=== PATIENT | male | born 1945 | race Caucasian/White ===

== ENCOUNTER 2017-08-08 11:06 | Inpatient (IN) | payer MEDICARE, BC ==
[2017-08-08] MEDS ORDERED: Albuterol 0.083% 2.5 MG/3 ML Neb Soln NEB PRN (11:58)
[2017-08-08] MEDS ORDERED: Sodium Chloride 0.9% 1,000 ML IV SCH (11:58)
[2017-08-08] MEDS ORDERED: oxyCODONE 5 MG Tab PO PRN (11:58)
[2017-08-08] MEDS ORDERED: Sodium Chloride 0.9% 10 ML Syringe FLUSH PRN (11:58)
[2017-08-08] MEDS ORDERED: Acetaminophen 325 MG Tab PO PRN (11:58)
[2017-08-08] MEDS ORDERED: Polyethylene Glycol 3350 Powder 17 GM Packet PO PRN (11:58)
[2017-08-08] MEDS ORDERED: Magnesium Hydroxide 400 MG/5 ML Susp 30 ML Cup PO PRN (11:58)
[2017-08-08] MEDS ORDERED: Ondansetron 4 MG/2 ML SDV IV PRN (11:58)
[2017-08-08] MEDS ORDERED: methylPREDNISolone Sodium Succinate 125 MG/2 ML SDV IVPUSH ONE (12:30)
[2017-08-08] MEDS: Enoxaparin 40 MG/0.4 ML Syringe SUBCUT SCH (14:08)
[2017-08-08] MEDS ORDERED: Non-Formulary Medication 1 Each (Esomeprazole [Nexium] 40 MG) PO PRN (14:09)
[2017-08-08] MEDS ORDERED: NAPROXEN 500 MG PO PRN (14:09)
[2017-08-08] MEDS ORDERED: 50% Dextrose in Water 50 ML Syringe IV PRN (14:10)
[2017-08-08] MEDS ORDERED: Glucose Gel 15 GM in 37.5 GM Tube PO PRN (14:10)
[2017-08-08] MEDS ORDERED: Nicotine Polacrilex 2 MG Gum CHEW PRN (14:12)
[2017-08-08] MEDS ORDERED: Naproxen 250 MG Tab PO PRN (14:24)
[2017-08-08] MEDS ORDERED: Pantoprazole 40 MG Tab.CR PO PRN (14:30)
[2017-08-08] MEDS: Albuterol/Ipratropium 3.0-0.5 MG/3 ML Neb Soln NEB SCH ×2 (14:50→20:58)
[2017-08-08] MEDS: Nicotine 21 MG/24 Hr Patch TRDERM SCH (14:58)
[2017-08-08] MEDS ORDERED: Magnesium Sulfate/Water 2 GM in Premix Bag 1 BAG IV ONE (15:00)
--- NOTE | 2017-08-08 15:49 | PCM.HP ---
H&P History of Present Illness - General Date of Service: 08/08/17 Admit Problem/Dx: Source of Information: Patient, Provider, RN Notes Reviewed History Limitations: Reports: No Limitations - History of Present Illness Initial Comments - Free Text/Narative: Mr. Telles is a 72-year-old gentleman who is admitted as a direct admission from the clinic urgent care department with hypoxia and upper respiratory tract infection. He's not felt well over the past 5 days with cough and progressive shortness of breath. He does have a known history of COPD, continues to smoke, but is not yet oxygen dependent. Symptoms have progressed the point where he was significantly short of breath at rest. On evaluation in the urgent care clinic was noted to be hypoxic, chest x-ray showed no obvious infiltrate. - Related Data Allergies/Adverse Reactions: Allergies Allergy/AdvReac Type Severity Reaction Status Date / Time No Known Allergies Allergy Verified 11/26/16 09:09 Home Medications: Home Meds Albuterol Sulfate [Albuterol Sulfate HFA] 2 puff IH Q4H PRN 09/16/13 [History] Montelukast [Singulair] 10 mg PO DAILY 09/16/13 [History] Aspirin 325 mg PO DAILY 10/07/15 [History] Umeclidinium Galva [Incruse Ellipta] 1 puff IH DAILY 10/07/15 [History] amLODIPine Besylate [Norvasc] 2.5 mg PO DAILY 10/07/15 [History] atorvaSTATin [Lipitor] 40 mg PO DAILY 10/07/15 [History] metFORMIN [Riomet] 500 mg PO BID 10/07/15 [History] Codeine/guaiFENesin [guaiFENesin-Codeine Syrup] 10 ml PO Q4H PRN 05/13/16 [ History] Fluticasone/Vilanterol [Breo Ellipta 100-25 MCG Inhalation Kit] 1 puff IH DAILY 05/13/16 [History] Multivit-Min/FA/Lycopene/Lut [Centrum Silver Tablet] 1 tab PO DAILY 05/13/16 [ History] Naproxen 500 mg PO TIDMEALS PRN 05/13/16 [History] Lisinopril 10 mg PO DAILY 11/26/16 [History] Esomeprazole [NexIUM] 40 mg PO DAILY PRN 08/08/17 [History] traMADol HCl [Tramadol HCl] 50 - 100 mg PO QID PRN 08/08/17 [History] Past Medical History HEENT History: Reports: Other (See Below) Other HEENT History: septal surg and sinus Cardiovascular History: Reports: Other (See Below) Respiratory History: Reports: COPD Gastrointestinal History: Reports: GERD Endocrine/Metabolic History: Reports: Diabetes, Type II - Past Surgical History Head Surgeries/Procedures: Reports: None Cardiovascular Surgical History: Reports: Percutaneous Transluminal Angioplasty Neurological Surgical History: Reports: Other (See Below) Other Neurological Surgeries/Procedures: angiogram in neck Social & Family History - Tobacco Use Smoking Status *Q: Light Tobacco Smoker Years of Tobacco use: 50 Packs/Tins Daily: 0.5 Used Tobacco, but Quit: No Month Tobacco Last Used: Second Hand Smoke Exposure: Yes - Caffeine Use Caffeine Use: Reports: Coffee - Alcohol Use Days Per Week of Alcohol Use: 1 Number of Drinks Per Day: 1 Total Drinks Per Week: 1 - Recreational Drug Use Recreational Drug Use: No H&P Review of Systems - Review of Systems: Review Of Systems: See Below General: Reports: Chills, Weakness, Diaphoresis, Decreased Appetite. Denies: Fever HEENT: Reports: No Symptoms Pulmonary: Reports: Shortness of Breath, Wheezing, Cough, Sputum. Denies: Pleuritic Chest Pain, Hemoptysis Cardiovascular: Reports: Dyspnea on Exertion. Denies: Chest Pain, Palpitations , Orthopnea, PND, Edema, Lightheadedness Gastrointestinal: Reports: No Symptoms Genitourinary: Reports: No Symptoms Musculoskeletal: Reports: No Symptoms Skin: Reports: No Symptoms Psychiatric: Reports: No Symptoms Neurological: Reports: No Symptoms Hematologic/Lymphatic: Reports: No Symptoms Immunologic: Reports: No Symptoms Exam - Exam Exam: See Below - Vital Signs Vital Signs: Last Vital Signs Temp 99.0 F 08/08/17 11:58 Pulse 96 08/08/17 15:20 Resp 22 H 08/08/17 15:20 BP 148/80 H 08/08/17 15:20 Pulse Ox 94 L 08/08/17 15:20 Weight: 255 lb 6.4 oz - Exam Quality Assessment: Supplemental Oxygen, DVT Prophylaxis General: Alert, Oriented, Cooperative, Moderate Distress HEENT: Conjunctiva Clear, Hearing Intact, Mucosa Moist & [place], Normal Nasal Septum, Posterior Pharynx Clear, Pupils Equal Neck: Supple, Trachea Midline, +2 Carotid Pulse wo Bruit Lungs: Decreased Breath Sounds, Rhonchi, Wheezing. No: Crackles, Rales, Rub Cardiovascular: Regular Rate, Regular Rhythm, Normal S1, Normal S2. No: Systolic Murmur, Diastolic Murmur GI/Abdominal Exam: Soft, Non-Tender, No Organomegaly, No Distention Back Exam: Normal Inspection, Full Range of Motion Extremities: Non-Tender, No Pedal Edema Skin: Warm, Dry, Intact Neurological: Cranial Nerves Intact, Strength Equal Bilateral, Normal Speech, Normal Tone, Sensation Intact. No: Focal Deficit Neuro Extensive - Mental Status: Alert, Oriented x3, Normal Mood/Affect, Normal Cognition, Memory Intact - Patient Data Lab Results Last 24 hrs: Laboratory Results - last 24 hr 08/08/17 08/08/17 08/08/17 Range/Units 12:10 12:10 12:10 WBC 5.7 (4.5-11.0) K/uL RBC 4.82 (4.30-5.90) M/uL Hgb 14.4 (12.0-15.0) g/dL Hct 42.6 (40.0-54.0) % MCV 88 (80-98) fL MCH 30 (27-31) pg MCHC 34 (32-36) % Plt Count 149 L (150-400) K/uL Neut % (Auto) 65 (36-66) % Lymph % (Auto) 21 L (24-44) % [place] % (Auto) 13 H (2-6) % Eos % (Auto) 1 L (2-4) % Baso % (Auto) 0 (0-1) % Puncture Site Lt radial ABG pH 7.401 (7.350-7.450) ABG pCO2 43.1 H (35.0-42.0) mmHg ABG pO2 76.2 (75.0-100.0) mmHg ABG HCO3 26.2 H (22.0-26.0) mmol/L ABG Total CO2 22.9 L (23.0-27.0) mmol/L ABG O2 Saturation 94.4 L (95.0-98.0) % ABG O2 Content 18.6 (15.0-23.0) %vol ABG Base Excess 1.6 mm/L ABG Hemoglobin 14.5 (13.5-18.0) g/dL ABG Oxyhemoglobin 91.6 % ABG Carboxyhemoglobin 2.0 H (0.0-1.6) % ABG Methemoglobin 1.0 % Ryley Test Passed O2 Delivery Device Nasal cannula Oxygen Flow Rate 3 L Sodium 140 (140-148) mmol/L Potassium 4.3 (3.6-5.2) mmol/L Chloride 105 (100-108) mmol/L Carbon Dioxide 25 (21-32) mmol/L Anion Gap 9.7 (5.0-14.0) mmol/L BUN 13 (7-18) mg/dL Creatinine 1.2 (0.8-1.3) mg/dL Est Cr Clr Drug Dosing 61.01 mL/min Estimated GFR (MDRD) 60 (>60) Glucose 119 H (74-106) mg/dL Calcium 8.2 L (8.5-10.1) mg/dL Magnesium 1.7 L (1.8-2.4) mg/dL Total Bilirubin 0.5 (0.2-1.0) mg/dL AST 17 (15-37) U/L ALT 9 L (12-78) U/L Alkaline Phosphatase 66 (46-116) U/L Troponin I < 0.017 (0.000-0.056) ng/mL NT-Pro-B Natriuret Pep 105 (5-125) pg/mL Total Protein 5.9 L (6.4-8.2) g/dL Albumin 3.1 L (3.4-5.0) g/dL Globulin 2.8 (2.3-3.5) g/dL Albumin/Globulin Ratio 1.1 L (1.2-2.2) Result Diagrams: 08/08/17 12:10 08/08/17 12:10 Sean Results Last 24 hrs: Microbiology 08/08/17 12:20 Gram Stain - Final Sputum - Expectorated *Q Meaningful Use (ADM) - VTE *Q VTE Criteria *Q: - VTE Risk Assess *Q Each Risk Factor Represents 1 Point: Abnormal Pulmonary Function (COPD) Total Score 1 Point Risk Factors: 1 Each Risk Factor Represents 2 Points: Age 60 - 74 Years Total Score 2 Point Risk Factors: 2 Each Risk Factor Represents 3 Points: None Total Score 3 Point Risk Factors: 0 Each Risk Factor Represents 5 Points: None Total Score 5 Point Risk Factors: 0 Venous Thromboembolism Risk Factor Score *Q: 3 - Stroke *Q Stroke Criteria *Q: - AMI *Q AMI Criteria *Q: Problem List Initiated/Reviewed/Updated: Yes Orders Last 24hrs: Active Orders 24 hr Category Date Time Status Patient Status [ADT] Routine ADT 08/08/17 11:58 Active Ambulate [RC] QID Care 08/08/17 11:58 Active Blood Glucose Check, Bedside [RC] QIDACANDBED Care 08/08/17 14:11 Active Cardiac Monitoring [RC] .As Directed Care 08/08/17 11:58 Active Communication Order [RC] STAT Care 08/08/17 14:11 Active Diabetes Education [RC] Click to Edit Care 08/08/17 14:11 Active Height and Weight [RC] 0511 Care 08/08/17 11:58 Active Intake and Output [RC] QSHIFT Care 08/08/17 11:58 Active Notify Provider Vital Signs [RC] ASDIRECTED Care 08/08/17 11:58 Active Notify Provider [RC] PRN Care 08/08/17 14:11 Active Oxygen Therapy [RC] PRN Care 08/08/17 11:58 Active Peripheral IV Care [RC] . DIRECTED Care 08/08/17 11:58 Active Pulse Oximetry [RC] CONTINUOUS Care 08/08/17 11:58 Active RT Aerosol Therapy [RC] ASDIRECTED Care 08/08/17 11:58 Active Up With Assistance [RC] ASDIRECTED Care 08/08/17 11:58 Active Up to Chair [RC] QID Care 08/08/17 11:58 Active VTE/DVT Education [RC] Per Unit Routine Care 08/08/17 11:58 Active Vital Signs [RC] Q4H Care 08/08/17 11:58 Active Regular Diet [DIET] Diet 08/08/17 Lunch Active BASIC METABOLIC PANEL,BMP [CHEM] Timed Lab 08/09/17 05:00 Ordered CBC WITH AUTO DIFF [HEME] Timed Lab 08/09/17 05:00 Ordered CULTURE RESPIRATORY + SMEAR [RM] Stat Lab 08/08/17 12:20 Results GLUCOSE POC LAB TO COLLECT [POC] QIDACANDBED Lab 08/08/17 16:30 Ordered GLUCOSE POC LAB TO COLLECT [POC] QIDACANDBED Lab 08/08/17 21:00 Ordered GLUCOSE POC LAB TO COLLECT [POC] QIDACANDBED Lab 08/09/17 07:30 Ordered GLUCOSE POC LAB TO COLLECT [POC] QIDACANDBED Lab 08/09/17 11:30 Ordered GLUCOSE POC LAB TO COLLECT [POC] QIDACANDBED Lab 08/09/17 16:30 Ordered GLUCOSE POC LAB TO COLLECT [POC] QIDACANDBED Lab 08/09/17 21:00 Ordered GLUCOSE POC LAB TO COLLECT [POC] QIDACANDBED Lab 08/10/17 07:30 Ordered GLUCOSE POC LAB TO COLLECT [POC] QIDACANDBED Lab 08/10/17 11:30 Ordered GLUCOSE POC LAB TO COLLECT [POC] QIDACANDBED Lab 08/10/17 16:30 Ordered GLUCOSE POC LAB TO COLLECT [POC] QIDACANDBED Lab 08/10/17 21:00 Ordered GLUCOSE POC LAB TO COLLECT [POC] QIDACANDBED Lab 08/11/17 07:30 Ordered GLUCOSE POC LAB TO COLLECT [POC] QIDACANDBED Lab 08/11/17 11:30 Ordered GLUCOSE POC LAB TO COLLECT [POC] QIDACANDBED Lab 08/11/17 16:30 Ordered GLUCOSE POC LAB TO COLLECT [POC] QIDACANDBED Lab 08/11/17 21:00 Ordered GLUCOSE POC LAB TO COLLECT [POC] QIDACANDBED Lab 08/12/17 07:30 Ordered GLUCOSE POC LAB TO COLLECT [POC] QIDACANDBED Lab 08/12/17 11:30 Ordered GLUCOSE POC LAB TO COLLECT [POC] QIDACANDBED Lab 08/12/17 16:30 Ordered GLUCOSE POC LAB TO COLLECT [POC] QIDACANDBED Lab 08/12/17 21:00 Ordered GLUCOSE POC LAB TO COLLECT [POC] QIDACANDBED Lab 08/13/17 07:30 Ordered GLUCOSE POC LAB TO COLLECT [POC] QIDACANDBED Lab 08/13/17 11:30 Ordered GLUCOSE POC LAB TO COLLECT [POC] QIDACANDBED Lab 08/13/17 16:30 Ordered GLUCOSE POC LAB TO COLLECT [POC] QIDACANDBED Lab 08/13/17 21:00 Ordered MAGNESIUM [CHEM] Timed Lab 08/09/17 05:00 Ordered Acetaminophen [Tylenol] Med 08/08/17 11:58 Active 650 mg PO Q4H PRN Albuterol [Proventil Neb Soln] Med 08/08/17 11:58 Active 2.5 mg NEB Q4H PRN Albuterol/Ipratropium [DuoNeb 3.0-0.5 MG/3 ML] Med 08/08/17 15:00 Active 3 ml NEB QIDRT Aspirin [Ecotrin] Med 08/09/17 09:00 Active 325 mg PO DAILY Codeine/guaiFENesin [Robitussin AC] Med 08/08/17 14:09 Active 10 ml PO Q4H PRN Dextrose 50% in Water Med 08/08/17 14:10 Active 50 ml IV ASDIRECTED PRN Dextrose [Glutose 15] Med 08/08/17 14:10 Active 15 gm PO ASDIRECTED PRN Docusate Sodium/Sennosides [Senna Plus] Med 08/08/17 11:58 Active 1 tab PO BID PRN Doxycycline [Vibramycin] 100 mg Med 08/08/17 16:00 Active Sodium Chloride 0.9% [Normal Saline] 100 ml IV Q12H Enoxaparin [Lovenox] Med 08/08/17 13:30 Active 40 mg SUBCUT Q24H Fluticasone/Vilanterol Med 08/09/17 09:00 Pending 1 puff IH DAILY Insulin Aspart [NovoLOG] Med 08/08/17 17:00 Active See Protocol SUBCUT QIDACANDBED Lisinopril [Prinivil] Med 08/09/17 09:00 Active 10 mg PO DAILY Magnesium Hydroxide [Milk of Magnesia] Med 08/08/17 11:58 Active 30 ml PO Q12H PRN Magnesium Sulfate/Water [Magnesium Sulfate 2 GM in Med 08/08/17 15:00 Active Water 50 ML] 2 gm Premix Bag 1 bag IV ONETIME Montelukast [Singulair] Med 08/09/17 09:00 Active 10 mg PO DAILY Naproxen [Naprosyn] Med 08/08/17 14:24 Active 500 mg PO TIDMEALS PRN Nicotine Polacrilex [Nicorelief] Med 08/08/17 14:12 Active 2 mg CHEW Q1H PRN Nicotine [Habitrol] Med 08/08/17 15:00 Active 21 mg TRDERM DAILY Ondansetron [Zofran] Med 08/08/17 11:58 Active 4 mg IV Q4H PRN Pantoprazole [ProTONIX] Med 08/08/17 14:30 Active 40 mg PO DAILY PRN Polyethylene Glycol 3350 [MiraLAX] Med 08/08/17 11:58 Active 17 gm PO DAILY PRN Sodium Chloride 0.9% [Normal Saline] 1,000 ml Med 08/08/17 11:58 Active IV ASDIRECTED Sodium Chloride 0.9% [Saline Flush] Med 08/08/17 11:58 Active 10 ml FLUSH ASDIRECTED PRN Tiotropium [Spiriva HandiHaler] Med 08/09/17 07:00 Active 18 mcg INH DAILYRT amLODIPine [Norvasc] Med 08/09/17 09:00 Active 2.5 mg PO DAILY atorvaSTATin [Lipitor] Med 08/09/17 09:00 Active 40 mg PO DAILY metFORMIN [Glucophage] Med 08/08/17 17:00 Active 500 mg PO BIDMEALS methylPREDNISolone Sod Succ [Solu-MEDROL] Med 08/08/17 18:00 Active 40 mg IVPUSH Q6H oxyCODONE Med 08/08/17 11:58 Active 5 mg PO Q4H PRN traMADol [Ultram] Med 08/08/17 14:09 Active 50 - 100 mg PO QID PRN Peripheral IV Insertion Adult [OM.PC] Routine Oth 08/08/17 11:58 Ordered Resuscitation Status Routine Resus Stat 08/08/17 11:26 Ordered EKG 12 Lead [EK] Stat Ther 08/08/17 11:58 Ordered Medication Orders Acetaminophen (Tylenol) 650 mg PO Q4H PRN PRN Reason: Pain (Mild 1-3)/fever Albuterol (Proventil Neb Soln) 2.5 mg NEB Q4H PRN PRN Reason: Shortness Of Breath/wheezing Last Admin: 08/08/17 12:48 Dose: 2.5 mg Albuterol/Ipratropium (Duoneb 3.0-0.5 Mg/3 Ml) 3 ml NEB QIDRT ANN Last Admin: 08/08/17 14:50 Dose: 3 ml Amlodipine Besylate (Norvasc) 2.5 mg PO DAILY ANN Aspirin (Ecotrin) 325 mg PO DAILY ANN Atorvastatin Calcium (Lipitor) 40 mg PO DAILY ANN Dextrose (Glutose 15) 15 gm PO ASDIRECTED PRN PRN Reason: Hypoglycemia Dextrose/Water (Dextrose 50% In Water) 50 ml IV ASDIRECTED PRN PRN Reason: Hypoglycemia Enoxaparin Sodium (Lovenox) 40 mg SUBCUT Q24H [facility] Last Admin: 08/08/17 14:08 Dose: 40 mg Guaifenesin/Codeine Phosphate (Robitussin Ac) 10 ml PO Q4H PRN PRN Reason: Cough Sodium Chloride (Normal Saline) 1,000 mls @ 125 mls/hr IV ASDIRECTED [facility] Last Admin: 08/08/17 12:34 Dose: 125 mls/hr Magnesium Sulfate 2 gm/ Premix 50 mls @ 25 mls/hr IV ONETIME ONE Stop: 08/08/17 16:59 Last Admin: 08/08/17 14:58 Dose: 25 mls/hr Doxycycline Hyclate 100 mg/ (Sodium Chloride) 100 mls @ 100 mls/hr IV Q12H [facility] Insulin Aspart (Novolog) 0 unit SUBCUT QIDACANDBED [facility] PRN Reason: Protocol Lisinopril (Prinivil) 10 mg PO DAILY [facility] Magnesium Hydroxide (Milk Of Magnesia) 30 ml PO Q12H PRN PRN Reason: Constipation Metformin HCl (Glucophage) 500 mg PO BIDMEALS [facility] Methylprednisolone Sodium Succinate (Solu-Medrol) 40 mg IVPUSH Q6H [facility] Montelukast Sodium (Singulair) 10 mg PO DAILY [facility] Naproxen (Naprosyn) 500 mg PO TIDMEALS PRN PRN Reason: PAIN Nicotine (Habitrol) 21 mg TRDERM DAILY [facility] Last Admin: 08/08/17 14:58 Dose: 21 mg Nicotine Polacrilex (Nicorelief) 2 mg CHEW Q1H PRN PRN Reason: Other Non-Formulary Medication (Fluticasone/Vilanterol) 1 puff IH DAILY [facility] Ondansetron HCl (Zofran) 4 mg IV Q4H PRN PRN Reason: Nausea/Vomiting Oxycodone HCl (Oxycodone) 5 mg PO Q4H PRN PRN Reason: Pain (moderate 4-6) Pantoprazole Sodium (Protonix) 40 mg PO DAILY PRN PRN Reason: REFLUX Polyethylene Glycol (Miralax) 17 gm PO DAILY PRN PRN Reason: Constipation Senna/Docusate Sodium (Senna Plus) 1 tab PO BID PRN PRN Reason: Constipation Sodium Chloride (Saline Flush) 10 ml FLUSH ASDIRECTED PRN PRN Reason: Keep Vein Open Tiotropium Galva (Spiriva Handihaler) 18 mcg INH DAILYRT ANN Tramadol HCl (Ultram) 50 - 100 mg PO QID PRN PRN Reason: Pain Assessment/Plan Comment:: ASSESSMENT AND PLAN COPD EXACERBATION SECONDARY TO BRONCHITIS-modestly improved with initial management and supplemental oxygen. Chest x-ray shows no obvious infiltrate, white blood cell count within normal range. Sputum culture Gram stain shows numerous gram-positive cocci. -Sputum culture pending -Supplemental oxygen as needed -IV fluids for hydration -Nebulized albuterol and duo nebs -Solu-Medrol 40 mg IV every 6 hours -Doxycycline 100 mg IV every 12 hours, pending culture results HYPOXIC RESPIRATORY FAILURE-stabilized with supplemental oxygen -Ongoing supplemental oxygen as needed -Consider use of noninvasive positive pressure ventilation if he experiences further respiratory compromise -Otherwise management as above TYPE 2 DIABETES MELLITUS -Continue metformin -4 times a day glucometers -Low-dose sliding scale NovoLog NICOTINE [id number]-cqro-year smoking history, smoked up until the time of admission -21 mg daily patch -2 mg nicotinic as needed MAINTENANCE ISSUES -DVT prophylaxis; Lovenox 40 mg subcutaneous daily -GI prophylaxis; continue outpatient PPI therapy -Castillo catheter; not indicated -Nutrition; regular diet -Nicotine dependence; as above CODE STATUS-FULL CODE ADMISSION STATUS-patient will be admitted to inpatient status, expect at least a 2 night hospital stay for evaluation and management of problems as outlined above. At the time of this admission I do not reasonably expected evaluation and management of this problem will require more than a 96 hour hospital stay. DISPOSITION-anticipate discharge to home after the hospital stay. PRIMARY CARE PROVIDER-Dr. Warren
[2017-08-08] MEDS: Codeine/guaiFENesin 100mg-10 MG/5 ML Syrup 10 ML Cup PO PRN ×2 (16:43→21:00)
[2017-08-08] MEDS: Doxycycline 100 MG in Sodium Chloride 0.9% 100 ML IV SCH (16:53)
[2017-08-08] MEDS: Insulin Aspart 100 Units/ML 3 ML Pen SUBCUT SCH ×2 (17:04→20:58)
[2017-08-08] MEDS: metFORMIN 500 MG Tab PO SCH (17:17)
[2017-08-08] MEDS: methylPREDNISolone Sodium Succinate 40 MG/1 ML SDV IVPUSH SCH ×2 (18:09→23:58)
[2017-08-08] MEDS ORDERED: metFORMIN 500 MG/5 ML PO SCH (21:00)
[2017-08-08] MEDS: traMADol 50 MG Tab PO PRN (23:59)
[2017-08-09] MEDS: Codeine/guaiFENesin 100mg-10 MG/5 ML Syrup 10 ML Cup PO PRN ×4 (01:32→21:26)
[2017-08-09] MEDS: Doxycycline 100 MG in Sodium Chloride 0.9% 100 ML IV SCH ×2 (02:59→16:02)
[2017-08-09] MEDS: methylPREDNISolone Sodium Succinate 40 MG/1 ML SDV IVPUSH SCH ×4 (05:32→23:07)
[2017-08-09] MEDS: Albuterol/Ipratropium 3.0-0.5 MG/3 ML Neb Soln NEB SCH ×4 (07:25→21:26)
[2017-08-09] MEDS: Tiotropium Inhaler 18 MCG Inhalation Powder Cap Kit of 5 INH SCH (07:30)
[2017-08-09] MEDS: Insulin Aspart 100 Units/ML 3 ML Pen SUBCUT SCH ×4 (07:32→21:31)
[2017-08-09] MEDS: amLODIPine 5 MG Tab PO SCH (08:16)
[2017-08-09] MEDS: metFORMIN 500 MG Tab PO SCH ×2 (08:16→17:00)
[2017-08-09] MEDS: Lisinopril 10 MG Tab PO SCH (08:17)
[2017-08-09] MEDS: Aspirin 325 MG Tab.EC PO SCH (08:17)
[2017-08-09] MEDS: Montelukast 10 MG Tab PO SCH (08:18)
[2017-08-09] MEDS: atorvaSTATin 20 MG Tab PO SCH (08:18)
[2017-08-09] MEDS: Nicotine 21 MG/24 Hr Patch TRDERM SCH (08:19)
[2017-08-09] MEDS: BREO ELLIPTA INH SCH (08:29)
[2017-08-09] MEDS ORDERED: Non-Formulary Medication 1 Each (Fluticasone/Vilanterol 1 PUFF) IH SCH (09:00)
[2017-08-09] MEDS ORDERED: Non-Formulary Medication 1 Each (Umeclidinium Bromide [Incruse Ellipta] 1 PUFF) IH SCH (09:00)
[2017-08-09] MEDS ORDERED: AMLODIPINE BESYLATE 2.5 MG PO SCH (09:00)
[2017-08-09] MEDS ORDERED: Non-Formulary Medication 1 Each (Aspirin [Aspirin] 325 MG) PO SCH (09:00)
[2017-08-09] MEDS ORDERED: Non-Formulary Medication 1 Each (Atorvastatin [Lipitor] 40 MG) PO SCH (09:00)
--- NOTE | 2017-08-09 09:54 | PCM.PN ---
- General Info Date of Service: 08/09/17 Subjective Update: Mr. Telles has improved since admission, blood shortness of breath and wheezing. Cough also seems to have improved somewhat and is more productive. He is currently on room air with adequate oxygen saturation. Vital signs have been stable and he has remained afebrile. Functional Status: Reports: Tolerating Diet, Urinating - Review of Systems General: Reports: Weakness. Denies: Fever, Chills Pulmonary: Reports: Shortness of Breath, Cough, Sputum, Wheezing. Denies: Pleuritic Chest Pain, Hemoptysis Cardiovascular: Reports: Dyspnea on Exertion. Denies: Chest Pain, Palpitations , Orthopnea, PND, Edema, Lightheadedness Gastrointestinal: Reports: No Symptoms - Patient Data Vitals - Most Recent: Last Vital Signs Temp 98.5 F 08/09/17 07:45 Pulse 108 H 08/09/17 07:45 Resp 20 08/09/17 07:45 BP 148/61 H 08/09/17 08:17 Pulse Ox 92 L 08/09/17 07:45 Weight - Most Recent: 255 lb 6.4 oz I&O - Last 24 Hours: Intake & Output 08/08/17 08/09/17 08/09/17 22:59 06:59 14:59 Intake Total 2281 1999 Output Total 1150 Balance 1131 1999 Lab Results Last 24 Hours: Laboratory Results - last 24 hr 08/08/17 08/08/17 08/08/17 Range/Units 12:10 12:10 12:10 WBC 5.7 (4.5-11.0) K/uL RBC 4.82 (4.30-5.90) M/uL Hgb 14.4 (12.0-15.0) g/dL Hct 42.6 (40.0-54.0) % MCV 88 (80-98) fL MCH 30 (27-31) pg MCHC 34 (32-36) % Plt Count 149 L (150-400) K/uL Neut % (Auto) 65 (36-66) % Lymph % (Auto) 21 L (24-44) % [place] % (Auto) 13 H (2-6) % Eos % (Auto) 1 L (2-4) % Baso % (Auto) 0 (0-1) % Puncture Site Lt radial ABG pH 7.401 (7.350-7.450) ABG pCO2 43.1 H (35.0-42.0) mmHg ABG pO2 76.2 (75.0-100.0) mmHg ABG HCO3 26.2 H (22.0-26.0) mmol/L ABG Total CO2 22.9 L (23.0-27.0) mmol/L ABG O2 Saturation 94.4 L (95.0-98.0) % ABG O2 Content 18.6 (15.0-23.0) %vol ABG Base Excess 1.6 mm/L ABG Hemoglobin 14.5 (13.5-18.0) g/dL ABG Oxyhemoglobin 91.6 % ABG Carboxyhemoglobin 2.0 H (0.0-1.6) % ABG Methemoglobin 1.0 % Ryley Test Passed O2 Delivery Device Nasal cannula Oxygen Flow Rate 3 L Sodium 140 (140-148) mmol/L Potassium 4.3 (3.6-5.2) mmol/L Chloride 105 (100-108) mmol/L Carbon Dioxide 25 (21-32) mmol/L Anion Gap 9.7 (5.0-14.0) mmol/L BUN 13 (7-18) mg/dL Creatinine 1.2 (0.8-1.3) mg/dL Est Cr Clr Drug Dosing 61.01 mL/min Estimated GFR (MDRD) 60 (>60) Glucose 119 H (74-106) mg/dL Calcium 8.2 L (8.5-10.1) mg/dL Magnesium 1.7 L (1.8-2.4) mg/dL Total Bilirubin 0.5 (0.2-1.0) mg/dL AST 17 (15-37) U/L ALT 9 L (12-78) U/L Alkaline Phosphatase 66 (46-116) U/L Troponin I < 0.017 (0.000-0.056) ng/mL NT-Pro-B Natriuret Pep 105 (5-125) pg/mL Total Protein 5.9 L (6.4-8.2) g/dL Albumin 3.1 L (3.4-5.0) g/dL Globulin 2.8 (2.3-3.5) g/dL Albumin/Globulin Ratio 1.1 L (1.2-2.2) 02/11/18 02/11/18 Range/Units 05:53 05:53 WBC 5.8 (4.5-11.0) K/uL RBC 4.74 (4.30-5.90) M/uL Hgb 14.2 (12.0-15.0) g/dL Hct 41.8 (40.0-54.0) % MCV 88 (80-98) fL MCH 30 (27-31) pg MCHC 34 (32-36) % Plt Count 156 (150-400) K/uL Neut % (Auto) 86 H (36-66) % Lymph % (Auto) 9 L (24-44) % [place] % (Auto) 5 (2-6) % Eos % (Auto) 0 L (2-4) % Baso % (Auto) 0 (0-1) % Puncture Site ABG pH (7.350-7.450) ABG pCO2 (35.0-42.0) mmHg ABG pO2 (75.0-100.0) mmHg ABG HCO3 (22.0-26.0) mmol/L ABG Total CO2 (23.0-27.0) mmol/L ABG O2 Saturation (95.0-98.0) % ABG O2 Content (15.0-23.0) %vol ABG Base Excess mm/L ABG Hemoglobin (13.5-18.0) g/dL ABG Oxyhemoglobin % ABG Carboxyhemoglobin (0.0-1.6) % ABG Methemoglobin % Ryley Test O2 Delivery Device Oxygen Flow Rate L Sodium 140 (140-148) mmol/L Potassium 4.5 (3.6-5.2) mmol/L Chloride 106 (100-108) mmol/L Carbon Dioxide 26 (21-32) mmol/L Anion Gap 8.5 (5.0-14.0) mmol/L BUN 15 (7-18) mg/dL Creatinine 1.0 (0.8-1.3) mg/dL Est Cr Clr Drug Dosing 73.21 mL/min Estimated GFR (MDRD) > 60 (>60) Glucose 182 H (74-106) mg/dL Calcium 8.5 (8.5-10.1) mg/dL Magnesium 2.0 (1.8-2.4) mg/dL Total Bilirubin (0.2-1.0) mg/dL AST (15-37) U/L ALT (12-78) U/L Alkaline Phosphatase (46-116) U/L Troponin I (0.000-0.056) ng/mL NT-Pro-B Natriuret Pep (5-125) pg/mL Total Protein (6.4-8.2) g/dL Albumin (3.4-5.0) g/dL Globulin (2.3-3.5) g/dL Albumin/Globulin Ratio (1.2-2.2) Sean Results Last 24 Hours: Microbiology 08/08/17 12:20 Gram Stain - Final Sputum - Expectorated Respiratory Culture - Preliminary NORMAL RESPIRATORY FEI 1 DAY Med Orders - Current: Current Medications Acetaminophen (Tylenol) 650 mg PO Q4H PRN PRN Reason: Pain (Mild 1-3)/fever Albuterol (Proventil Neb Soln) 2.5 mg NEB Q4H PRN PRN Reason: Shortness Of Breath/wheezing Last Admin: 08/08/17 12:48 Dose: 2.5 mg Albuterol/Ipratropium (Duoneb 3.0-0.5 Mg/3 Ml) 3 ml NEB QIDRT [facility] Last Admin: 08/09/17 07:25 Dose: 3 ml Amlodipine Besylate (Norvasc) 2.5 mg PO DAILY [facility] Last Admin: 08/09/17 08:16 Dose: 2.5 mg Aspirin (Ecotrin) 325 mg PO DAILY [facility] Last Admin: 08/09/17 08:17 Dose: 325 mg Atorvastatin Calcium (Lipitor) 40 mg PO DAILY [facility] Last Admin: 08/09/17 08:18 Dose: 40 mg Dextrose (Glutose 15) 15 gm PO ASDIRECTED PRN PRN Reason: Hypoglycemia Dextrose/Water (Dextrose 50% In Water) 50 ml IV ASDIRECTED PRN PRN Reason: Hypoglycemia Enoxaparin Sodium (Lovenox) 40 mg SUBCUT Q24H [facility] Last Admin: 08/08/17 14:08 Dose: 40 mg Guaifenesin/Codeine Phosphate (Robitussin Ac) 10 ml PO Q4H PRN PRN Reason: Cough Last Admin: 08/09/17 06:41 Dose: 10 ml Doxycycline Hyclate 100 mg/ (Sodium Chloride) 100 mls @ 100 mls/hr IV Q12H [facility] Last Admin: 08/09/17 02:59 Dose: 100 mls/hr Insulin Aspart (Novolog) 0 unit SUBCUT QIDACANDBED [facility] PRN Reason: Protocol Last Admin: 08/09/17 07:32 Dose: 1 unit Lisinopril (Prinivil) 10 mg PO DAILY [facility] Last Admin: 08/09/17 08:17 Dose: 10 mg Magnesium Hydroxide (Milk Of Magnesia) 30 ml PO Q12H PRN PRN Reason: Constipation Metformin HCl (Glucophage) 500 mg PO BIDMEALS [facility] Last Admin: 08/09/17 08:16 Dose: 500 mg Methylprednisolone Sodium Succinate (Solu-Medrol) 40 mg IVPUSH Q6H [facility] Last Admin: 08/09/17 05:32 Dose: 40 mg Montelukast Sodium (Singulair) 10 mg PO DAILY [facility] Last Admin: 08/09/17 08:18 Dose: 10 mg Naproxen (Naprosyn) 500 mg PO TIDMEALS PRN PRN Reason: PAIN Nicotine (Habitrol) 21 mg TRDERM DAILY [facility] Last Admin: 08/09/17 08:19 Dose: 21 mg Nicotine Polacrilex (Nicorelief) 2 mg CHEW Q1H PRN PRN Reason: Other Ondansetron HCl (Zofran) 4 mg IV Q4H PRN PRN Reason: Nausea/Vomiting Oxycodone HCl (Oxycodone) 5 mg PO Q4H PRN PRN Reason: Pain (moderate 4-6) Last Admin: 08/08/17 16:52 Dose: 5 mg Pantoprazole Sodium (Protonix) 40 mg PO DAILY PRN PRN Reason: REFLUX Breo Ellipta 100/25 (Mcg--Ptom) 0 each INH DAILY [facility] Last Admin: 08/09/17 08:29 Dose: 1 each Polyethylene Glycol (Miralax) 17 gm PO DAILY PRN PRN Reason: Constipation Senna/Docusate Sodium (Senna Plus) 1 tab PO BID PRN PRN Reason: Constipation Sodium Chloride (Saline Flush) 10 ml FLUSH ASDIRECTED PRN PRN Reason: Keep Vein Open Tiotropium [place] (Spiriva Hand[facility]hal[facility]) [facility] Last Admin: 08/09/17 07:30 Dose: 18 mcg Tramadol HCl (Ultram) 50 - 100 mg PO QID PRN PRN Reason: Pain Last Admin: 08/08/17 23:59 Dose: 100 mg Discontinued Medications Sodium Chloride (Normal Saline) 1,000 mls @ 125 mls/hr IV ASDIRECTED [facility] Last Admin: 08/08/17 12:34 Dose: 125 mls/hr Magnesium Sulfate 2 gm/ Premix 50 mls @ 25 mls/hr IV ONETIME ONE Stop: 08/08/17 16:59 Last Admin: 08/08/17 14:58 Dose: 25 mls/hr Methylprednisolone Sodium Succinate (Solu-Medrol) 125 mg IVPUSH ONETIME ONE Stop: 08/08/17 12:31 Last Admin: 08/08/17 12:42 Dose: 125 mg - Exam Quality Assessment: DVT Prophylaxis General: Alert, Oriented, Cooperative, Mild Distress Lungs: Decreased Breath Sounds, Wheezing. No: Crackles, Rales, Rhonchi Cardiovascular: Regular Rate, Regular Rhythm, No Murmurs GI/Abdominal Exam: Soft, Non-Tender, No Organomegaly, No Distention Extremities: Non-Tender, No Pedal Edema Skin: Warm, Dry, Intact - Problem List Review Problem List Initiated/Reviewed/Updated: Yes - My Orders Last 24 Hours: My Active Orders 08/08/17 11:26 Resuscitation Status Routine 08/08/17 11:58 Patient Status [ADT] Routine Ambulate [RC] QID Height and Weight [RC] 0511 Intake and Output [RC] QSHIFT Notify Provider Vital Signs [RC] ASDIRECTED Oxygen Therapy [RC] Q12H Peripheral IV Care [RC] Q6H RT Aerosol Therapy [RC] ASDIRECTED Up With Assistance [RC] ASDIRECTED Up to Chair [RC] QID Acetaminophen [Tylenol] 650 mg PO Q4H PRN Albuterol [Proventil Neb Soln] 2.5 mg NEB Q4H PRN Docusate Sodium/Sennosides [Senna Plus] 1 tab PO BID PRN Magnesium Hydroxide [Milk of Magnesia] 30 ml PO Q12H PRN Ondansetron [Zofran] 4 mg IV Q4H PRN Polyethylene Glycol 3350 [MiraLAX] 17 gm PO DAILY PRN Sodium Chloride 0.9% [Saline Flush] 10 ml FLUSH ASDIRECTED PRN oxyCODONE 5 mg PO Q4H PRN Peripheral IV Insertion Adult [OM.PC] Routine EKG 12 Lead [EK] Stat 08/08/17 12:20 CULTURE RESPIRATORY + SMEAR [RM] Stat 08/08/17 13:30 Enoxaparin [Lovenox] 40 mg SUBCUT Q24H 08/08/17 14:09 Codeine/guaiFENesin [Robitussin AC] 10 ml PO Q4H PRN traMADol [Ultram] 50 - 100 mg PO QID PRN 08/08/17 14:10 Dextrose 50% in Water 50 ml IV ASDIRECTED PRN Dextrose [Glutose 15] 15 gm PO ASDIRECTED PRN 08/08/17 14:11 Blood Glucose Check, Bedside [RC] QIDACANDBED Diabetes Education [RC] Click to Edit Notify Provider [RC] PRN 08/08/17 14:12 Nicotine Polacrilex [Nicorelief] 2 mg CHEW Q1H PRN 08/08/17 14:24 Naproxen [Naprosyn] 500 mg PO TIDMEALS PRN 08/08/17 14:30 Pantoprazole [ProTONIX] 40 mg PO DAILY PRN 08/08/17 15:00 Albuterol/Ipratropium [DuoNeb 3.0-0.5 MG/3 ML] 3 ml NEB QIDRT Nicotine [Habitrol] 21 mg TRDERM DAILY 08/08/17 16:00 Doxycycline [Vibramycin] 100 mg Sodium Chloride 0.9% [Normal Saline] 100 ml IV Q12H 08/08/17 17:00 Insulin Aspart [NovoLOG] See Protocol SUBCUT QIDACANDBED metFORMIN [Glucophage] 500 mg PO BIDMEALS 08/08/17 18:00 methylPREDNISolone Sod Succ [Solu-MEDROL] 40 mg IVPUSH Q6H 08/08/17 Lunch Regular Diet [DIET] 08/09/17 07:00 Tiotropium [Spiriva HandiHaler] 18 mcg INH DAILYRT 08/09/17 07:30 GLUCOSE POC LAB TO COLLECT [POC] QIDACANDBED 08/09/17 09:00 Aspirin [Ecotrin] 325 mg PO DAILY Lisinopril [Prinivil] 10 mg PO DAILY Montelukast [Singulair] 10 mg PO DAILY Patient's Own Medication [Ptom] 0 each INH DAILY amLODIPine [Norvasc] 2.5 mg PO DAILY atorvaSTATin [Lipitor] 40 mg PO DAILY 08/09/17 09:48 Cardiac Monitoring Discontinue [RC] Click to Edit Vital Signs [RC] Q4H 08/09/17 11:30 GLUCOSE POC LAB TO COLLECT [POC] QIDACANDBED 08/09/17 16:30 GLUCOSE POC LAB TO COLLECT [POC] QIDACANDBED 08/09/17 21:00 GLUCOSE POC LAB TO COLLECT [POC] QIDACANDBED 08/10/17 07:30 GLUCOSE POC LAB TO COLLECT [POC] QIDACANDBED 08/10/17 11:30 GLUCOSE POC LAB TO COLLECT [POC] QIDACANDBED 08/10/17 16:30 GLUCOSE POC LAB TO COLLECT [POC] QIDACANDBED 08/10/17 21:00 GLUCOSE POC LAB TO COLLECT [POC] QIDACANDBED 08/11/17 07:30 GLUCOSE POC LAB TO COLLECT [POC] QIDACANDBED 08/11/17 11:30 GLUCOSE POC LAB TO COLLECT [POC] QIDACANDBED 08/11/17 16:30 GLUCOSE POC LAB TO COLLECT [POC] QIDACANDBED 08/11/17 21:00 GLUCOSE POC LAB TO COLLECT [POC] QIDACANDBED 08/12/17 07:30 GLUCOSE POC LAB TO COLLECT [POC] QIDACANDBED 08/12/17 11:30 GLUCOSE POC LAB TO COLLECT [POC] QIDACANDBED 08/12/17 16:30 GLUCOSE POC LAB TO COLLECT [POC] QIDACANDBED 08/12/17 21:00 GLUCOSE POC LAB TO COLLECT [POC] QIDACANDBED 08/13/17 07:30 GLUCOSE POC LAB TO COLLECT [POC] QIDACANDBED 08/13/17 11:30 GLUCOSE POC LAB TO COLLECT [POC] QIDACANDBED 08/13/17 16:30 GLUCOSE POC LAB TO COLLECT [POC] QIDACANDBED 08/13/17 21:00 GLUCOSE POC LAB TO COLLECT [POC] QIDACANDBED - Plan Plan:: ASSESSMENT AND PLAN COPD EXACERBATION SECONDARY TO BRONCHITIS- significantly improved from admission with less shortness of breath and wheezing, cough less frequent and more productive. Sputum Gram stain showed numerous gram-positive cocci, final ID and sensitivities pending -Sputum culture pending -Supplemental oxygen as needed -Saline lock IV -Change to medical surgical status -Nebulized albuterol and duo nebs -Solu-Medrol 40 mg IV every 6 hours -Doxycycline 100 mg IV every 12 hours, pending culture results HYPOXIC RESPIRATORY FAILURE- hypoxia has resolved with current management -management as above TYPE 2 DIABETES MELLITUS-hyperglycemia exacerbated by glucocorticoid therapy -Continue metformin -4 times a day glucometers -Low-dose sliding scale NovoLog NICOTINE [id number]-kpsy-year smoking history, smoked up until the time of admission -21 mg daily patch -2 mg nicotinic as needed MAINTENANCE ISSUES -DVT prophylaxis; Lovenox 40 mg subcutaneous daily -GI prophylaxis; continue outpatient PPI therapy -Castillo catheter; not indicated -Nutrition; regular diet -Nicotine dependence; as above CODE STATUS-FULL CODE ADMISSION STATUS-patient will be admitted to inpatient status, expect at least a 2 night hospital stay for evaluation and management of problems as outlined above. At the time of this admission I do not reasonably expected evaluation and management of this problem will require more than a 96 hour hospital stay. DISPOSITION-anticipate discharge to home after the hospital stay. PRIMARY CARE PROVIDER-Dr. Warren
[2017-08-09] MEDS: Enoxaparin 40 MG/0.4 ML Syringe SUBCUT SCH (13:39)
[2017-08-09] MEDS: traMADol 50 MG Tab PO PRN (21:26)
[2017-08-10] MEDS: Doxycycline 100 MG in Sodium Chloride 0.9% 100 ML IV SCH (03:15)
[2017-08-10] MEDS: methylPREDNISolone Sodium Succinate 40 MG/1 ML SDV IVPUSH SCH (06:15)
[2017-08-10] MEDS: Codeine/guaiFENesin 100mg-10 MG/5 ML Syrup 10 ML Cup PO PRN (06:20)
[2017-08-10] MEDS: Albuterol/Ipratropium 3.0-0.5 MG/3 ML Neb Soln NEB SCH (07:07)
[2017-08-10] MEDS: Tiotropium Inhaler 18 MCG Inhalation Powder Cap Kit of 5 INH SCH (07:11)
[2017-08-10] MEDS: Insulin Aspart 100 Units/ML 3 ML Pen SUBCUT SCH (07:33)
[2017-08-10] MEDS: metFORMIN 500 MG Tab PO SCH (07:33)
[2017-08-10 07:47] VITALS: BP 133/63
[2017-08-10] MEDS: Aspirin 325 MG Tab.EC PO SCH (08:09)
[2017-08-10] MEDS: Lisinopril 10 MG Tab PO SCH (08:09)
[2017-08-10] MEDS: atorvaSTATin 20 MG Tab PO SCH (08:09)
[2017-08-10] MEDS: Montelukast 10 MG Tab PO SCH (08:10)
[2017-08-10] MEDS: BREO ELLIPTA INH SCH (08:10)
[2017-08-10] MEDS: Nicotine 21 MG/24 Hr Patch TRDERM SCH (08:10)
[2017-08-10] MEDS: amLODIPine 5 MG Tab PO SCH (08:12)
--- NOTE | 2017-08-10 09:18 | PCM.DCSUM1 ---
Discharge Summary - Hospital Course Brief History: 72-year-old male with history of COPD, type 2 diabetes mellitus who presented with cough and shortness of breath. He was admitted for management of bronchitis with a COPD exacerbation. - Discharge Data Discharge Date: 08/10/17 Discharge Disposition: Home, Self-Care 01 Condition: Good - Discharge Diagnosis/Problem(s) (1) Acute bronchitis SNOMED Code(s): 55046737 ICD Code: J20.9 - ACUTE BRONCHITIS, UNSPECIFIED Status: Acute Qualifiers: Bronchitis organism: unspecified organism Qualified Code(s): J20.9 - Acute bronchitis, unspecified (2) COPD exacerbation SNOMED Code(s): 472858702 ICD Code: J44.1 - CHRONIC OBSTRUCTIVE PULMONARY DISEASE W (ACUTE) EXACERBATION Status: Acute (3) Type 2 diabetes mellitus SNOMED Code(s): 96128645 ICD Code: E11.9 - TYPE 2 DIABETES MELLITUS WITHOUT COMPLICATIONS Status: Chronic Qualifiers: Diabetes mellitus complication status: with unspecified complications Diabetes mellitus mcc insulin use: without bilingual teacher assistant use Qualified Code( s): E11.8 - Type 2 diabetes mellitus with unspecified complications - Patient Summary/Data Hospital Course: Hung presented to the walk-in clinic with progressive cough and shortness of breath. Workup in the clinic revealed a normal white blood cell count and chest x-ray did not have an obvious infiltrate but he was tachypneic and hypoxic. He was directly admitted to the hospital and empirically started on doxycycline to cover bronchitis. He was also started on IV steroids. Initially his sputum sample revealed gram-positive cocci and this was the reason for starting the doxycycline. Over the next 24 hours he did have a significant improvement in his respiratory status. Supplemental oxygen requirement decreased over this time. Symptomatically he improved over this time as well with less shortness of breath. His cough did eventually become more productive and he had a further improvement in his symptoms. He has not had any fevers in the past 24 hours. On the morning of admission his wheezing has nearly resolved. He is not on supplemental oxygen at this time and has been ambulating in the hallways without limitation or significant dyspnea. Sputum culture at this point is growing normal respiratory [place]. He has tolerated treatment with the antibiotics and I have elected to continue these after hospital discharge. Vital signs have been otherwise stable. The patient will be discharged home with additional antibiotic therapy with doxycycline as well as a completion of a prednisone burst. He will be following up later this week to ensure that his clinical status continues to improve. - Patient Instructions Diet: Diabetic Diet Activity: As Tolerated Driving: May Drive Today Showering/Bathing: May Shower Notify Provider of: Fever, Increased Pain, Nausea and/or Vomiting Other/Special Instructions: 1. You were in the hospital for management of an acute exacerbation of COPD secondary to bronchitis. We did not determine the bacteria that caused your infection but you have been getting better with steroids and the antibiotics provided in the hospital. I recommend additional antibiotic and steroid therapy as listed below. I have also provided a prescription for nebulizer solution which you can use up to 4 times daily as needed for shortness of breath. -Doxycycline 100 mg capsule - take 1 capsule twice daily with food. Your next dose is due tonight. -Prednisone 20 mg tablets - take 1 tablet twice daily with breakfast and with supper for 6 more doses. Your next dose is due this evening. 2. Continue your other medications as previously prescribed. 3. Please seek medical attention if you develop fever greater than 101, have sudden worsening of your breathing or sudden onset of severe shortness of breath or if you develop chest pain/pressure. - Discharge Plan Prescriptions/Med Rec: Albuterol/Ipratropium [DuoNeb 3.0-0.5 MG/3 ML] 3 ml NEB QIDRT PRN #30 neb PRN Reason: Shortness Of Breath Doxycycline Hyclate 100 mg PO BID #10 capsule predniSONE 20 mg PO BIDAC #6 tab Home Medications: Home Meds Albuterol Sulfate [Albuterol Sulfate HFA] 2 puff IH Q4H PRN 09/16/13 [History] Montelukast [Singulair] 10 mg PO DAILY 09/16/13 [History] Aspirin 325 mg PO DAILY 10/07/15 [History] Umeclidinium [place] [Incruse Ellipta] 1 puff IH DAILY 10/07/15 [History] amLODIPine Besylate [Norvasc] 2.5 mg PO DAILY 10/07/15 [History] atorvaSTATin [Lipitor] 40 mg PO DAILY 10/07/15 [History] metFORMIN [Riomet] 500 mg PO BID 10/07/15 [History] Codeine/guaiFENesin [Robitussin AC] 10 ml PO Q4H PRN 05/13/16 [History] Fluticasone/Vilanterol [Breo Ellipta 100-25 MCG Inhalation Kit] 1 puff IH DAILY 05/13/16 [History] Multivit-Min/FA/Lycopene/Lut [Centrum Silver Tablet] 1 tab PO DAILY 05/13/16 [ History] Naproxen 500 mg PO TIDMEALS PRN 05/13/16 [History] Lisinopril 10 mg PO DAILY 11/26/16 [History] Esomeprazole [NexIUM] 40 mg PO DAILY PRN 08/08/17 [History] traMADol HCl [Tramadol HCl] 50 - 100 mg PO QID PRN 08/08/17 [History] Albuterol/Ipratropium [DuoNeb 3.0-0.5 MG/3 ML] 3 ml NEB QIDRT PRN #30 neb [Rx] Doxycycline Hyclate 100 mg PO BID #10 capsule 08/10/17 [Rx] predniSONE 20 mg PO BIDAC #6 tab 08/10/17 [Rx] Patient Handouts: Acute Bronchitis, [id number], Doxycycline tablets or capsules, Prednisone tablets Referrals: Edmar Warren MD [Primary Care Provider] - (4-7 days - follow-up hospital stay for bronchitis and COPD exacerbation (End of this week or early next week)) - Discharge Summary/Plan Comment DC Time >30 min.: No (25) - Patient Data Vitals - Most Recent: Last Vital Signs Temp 36.9 C 08/10/17 07:46 Pulse 108 H 08/10/17 07:46 Resp 22 H 08/10/17 07:46 BP 133/63 08/10/17 08:12 Pulse Ox 92 L 08/10/17 07:46 Weight - Most Recent: 115.9 kg I&O - Last 24 hours: Intake & Output 08/09/17 08/10/17 08/10/17 22:59 06:59 14:59 Intake Total 100 Balance 100 SUSI Results - Last 24 hrs: Microbiology 08/08/17 12:20 Gram Stain - Final Sputum - Expectorated Respiratory Culture - Final NORMAL RESPIRATORY [place] 2 DAYS Med Orders - Current: Current Medications Acetaminophen (Tylenol) 650 mg PO Q4H PRN PRN Reason: Pain (Mild 1-3)/fever Last Admin: 08/09/17 12:45 Dose: 650 mg Albuterol (Proventil Neb Soln) 2.5 mg NEB Q4H PRN PRN Reason: Shortness Of Breath/wheezing Last Admin: 08/08/17 12:48 Dose: 2.5 mg Albuterol/Ipratropium (Duoneb 3.0-0.5 Mg/3 Ml) 3 ml NEB QIDRT [facility] Last Admin: 08/10/17 07:07 Dose: 3 ml Amlodipine Besylate (Norvasc) 2.5 mg PO DAILY [facility] Last Admin: 08/10/17 08:12 Dose: 2.5 mg Aspirin (Ecotrin) 325 mg PO DAILY [facility] Last Admin: 08/10/17 08:09 Dose: 325 mg Atorvastatin Calcium (Lipitor) 40 mg PO DAILY [facility] Last Admin: 08/10/17 08:09 Dose: 40 mg Dextrose (Glutose 15) 15 gm PO ASDIRECTED PRN PRN Reason: Hypoglycemia Dextrose/Water (Dextrose 50% In Water) 50 ml IV ASDIRECTED PRN PRN Reason: Hypoglycemia Enoxaparin Sodium (Lovenox) 40 mg SUBCUT Q24H [facility] Last Admin: 08/09/17 13:39 Dose: 40 mg Guaifenesin/Codeine Phosphate (Robitussin Ac) 10 ml PO Q4H PRN PRN Reason: Cough Last Admin: 08/10/17 06:20 Dose: 10 ml Doxycycline Hyclate 100 mg/ (Sodium Chloride) 100 mls @ 100 mls/hr IV Q12H [facility] Last Admin: 08/10/17 03:15 Dose: 100 mls/hr Insulin Aspart (Novolog) 0 unit SUBCUT QIDACANDBED [facility] PRN Reason: Protocol Last Admin: 08/10/17 07:33 Dose: 1 unit Lisinopril (Prinivil) 10 mg PO DAILY [facility] Last Admin: 08/10/17 08:09 Dose: 10 mg Magnesium Hydroxide (Milk Of Magnesia) 30 ml PO Q12H PRN PRN Reason: Constipation Metformin HCl (Glucophage) 500 mg PO BIDMEALS [facility] Last Admin: 08/10/17 07:33 Dose: 500 mg Methylprednisolone Sodium Succinate (Solu-Medrol) 40 mg IVPUSH Q6H [facility] Last Admin: 08/10/17 06:15 Dose: 40 mg Montelukast Sodium (Singulair) 10 mg PO DAILY [facility] Last Admin: 08/10/17 08:10 Dose: 10 mg Naproxen (Naprosyn) 500 mg PO TIDMEALS PRN PRN Reason: PAIN Nicotine (Habitrol) 21 mg TRDERM DAILY [facility] Last Admin: 08/10/17 08:10 Dose: 21 mg Nicotine Polacrilex (Nicorelief) 2 mg CHEW Q1H PRN PRN Reason: Other Last Admin: 08/09/17 18:46 Dose: 2 mg Ondansetron HCl (Zofran) 4 mg IV Q4H PRN PRN Reason: Nausea/Vomiting Oxycodone HCl (Oxycodone) 5 mg PO Q4H PRN PRN Reason: Pain (moderate 4-6) Last Admin: 08/08/17 16:52 Dose: 5 mg Pantoprazole Sodium (Protonix) 40 mg PO DAILY PRN PRN Reason: REFLUX Breo Ellipta 100/25 (Mcg--Ptom) 0 each INH DAILY [facility] Last Admin: 08/10/17 08:10 Dose: 1 each Polyethylene Glycol (Miralax) 17 gm PO DAILY PRN PRN Reason: Constipation Senna/Docusate Sodium (Senna Plus) 1 tab PO BID PRN PRN Reason: Constipation Sodium Chloride (Saline Flush) 10 ml FLUSH ASDIRECTED PRN PRN Reason: Keep Vein Open Tiotropium [place] ([facility]piriva Hand[facility]haler) [facility] Last Admin: 08/10/17 07:11 Dose: 18 mcg Tramadol HCl (Ultram) 50 - 100 mg PO QID PRN PRN Reason: Pain Last Admin: 08/09/17 21:26 Dose: 100 mg Discontinued Medications Sodium Chloride (Normal Saline) 1,000 mls @ 125 mls/hr IV ASDIRECTED [facility] Last Admin: 08/08/17 12:34 Dose: 125 mls/hr Magnesium Sulfate 2 gm/ Premix 50 mls @ 25 mls/hr IV ONETIME ONE Stop: 08/08/17 16:59 Last Admin: 08/08/17 14:58 Dose: 25 mls/hr Methylprednisolone Sodium Succinate (Solu-Medrol) 125 mg IVPUSH ONETIME ONE Stop: 08/08/17 12:31 Last Admin: 08/08/17 12:42 Dose: 125 mg - Exam Quality Assessment: Denies: Supplemental Oxygen General: Reports: Alert, Oriented, Cooperative, No Acute Distress Neck: Reports: Supple Lungs: Reports: Normal Respiratory Effort, Wheezing (Mild end expiratory wheezing) Cardiovascular: Reports: Regular Rate, Regular Rhythm GI/Abdominal Exam: Soft, No Distention Extremities: No Pedal Edema Psy/Mental Status: Reports: Alert, Normal Affect *Q Meaningful Use (DIS) - VTE *Q VTE Criteria *Q: - Stroke *Q Stroke Criteria *Q: - AMI *Q AMI Criteria *Q:
== END 2017-08-10 09:36 | disposition home or self-care (01) | DRG 190 ==
LOC: JP.ICU 11:06
PROVIDERS: ADMIT Hospitalist; ATTEND Hospitalist
DX: J44.0 Chronic obstructive pulmonary disease with (acute) lower respiratory infection (principal); J96.91 Respiratory failure, unspecified with hypoxia; J44.1 Chronic obstructive pulmonary disease with (acute) exacerbation; J20.9 Acute bronchitis, unspecified; F17.210 Nicotine dependence, cigarettes, uncomplicated; E11.9 Type 2 diabetes mellitus without complications; Z79.84 Long term (current) use of oral hypoglycemic drugs; K21.9 Gastro-esophageal reflux disease without esophagitis; Z79.82 Long term (current) use of aspirin; Z79.52 Long term (current) use of systemic steroids
CPT/HCPCS: 36415; 36600; 80048; 80053; 82803; 82962; 83735; 83880; 84484; 85025; 87070; 87205; 93005; 94640; 94640-76; 94664; A9270-GY; J1650; J2920; J2930; J3475; J7030; J7040; J7620

== ENCOUNTER 2018-12-19 08:54 | Emergency (ER) | payer MEDICARE ==
[2018-12-19 09:18] VITALS: BP 145/73
--- NOTE | 2018-12-19 10:38 | EDM.PDOC ---
ED HPI GENERAL MEDICAL PROBLEM - General Chief Complaint: Bite:Animal, Insect Stated Complaint: TICK BITE WITH SYMPTOMS Time Seen by Provider: 12/19/18 10:19 Source of Information: Reports: Patient History Limitations: Reports: No Limitations - History of Present Illness INITIAL COMMENTS - FREE TEXT/NARRATIVE: This gentleman comes in for a tick bite. He said he was bitten by the tick about a week ago and it was attached only for about 3 hours. He pulled it off and did okay but if his turn red over the past 4 days and that has gotten worse. Today today the center looks kind of purple. 2 nights ago he had chills and sweats. He's not having any kind of fever chills or body aches now. He doesn 't complain of a rash anywhere. Right Upper Leg Pain Score (Numeric/FACES): 3 - Related Data Allergies Allergy/AdvReac Type Severity Reaction Status Date / Time No Known Allergies Allergy Verified 12/19/18 09:11 Home Meds: Home Meds Montelukast [Singulair] 10 mg PO DAILY 09/16/13 [History] Aspirin 325 mg PO DAILY 10/07/15 [History] amLODIPine Besylate [Norvasc] 2.5 mg PO DAILY 10/07/15 [History] metFORMIN [Riomet] 500 mg PO BIDMEALS 10/07/15 [History] Lisinopril 10 mg PO DAILY 11/26/16 [History] Esomeprazole [NexIUM] 40 mg PO DAILY PRN 08/08/17 [History] Albuterol/Ipratropium [DuoNeb 3.0-0.5 MG/3 ML] 3 ml NEB QIDRT PRN #30 neb [Rx] Ibuprofen 800 mg PO Q8H PRN 09/15/18 [History] Albuterol Sulfate [Proair Hfa] 2 inh INH QID 10/05/18 [History] Fexofenadine [Dominique] 180 mg PO DAILY PRN 10/05/18 [History] atorvaSTATin Calcium [Lipitor] 40 mg PO DAILY 10/05/18 [History] Past Medical History HEENT History: Reports: Allergic Rhinitis, Impaired Vision, Other (See Below) Other HEENT History: septal surg and sinus Cardiovascular History: Reports: High Cholesterol, Hypertension Respiratory History: Reports: COPD Gastrointestinal History: Reports: Colon Polyp, GERD Musculoskeletal History: Reports: Fracture Neurological History: Reports: None Endocrine/Metabolic History: Reports: Diabetes, Type II, Obesity/BMI 30+ - Infectious Disease History Infectious Disease History: Reports: Chicken Pox, Measles, Mumps - Past Surgical History HEENT Surgical History: Reports: Adenoidectomy, Tonsillectomy Cardiovascular Surgical History: Reports: Percutaneous Transluminal Angioplasty Respiratory Surgical History: Reports: None GI Surgical History: Reports: Colonoscopy Neurological Surgical History: Reports: Other (See Below) Other Neurological Surgeries/Procedures: angiogram in neck Musculoskeletal Surgical History: Reports: Hip Replacement Social & Family History - Tobacco Use Smoking Status *Q: Current Every Day Smoker Years of Tobacco use: 50 Packs/Tins Daily: 1 - Caffeine Use Caffeine Use: Reports: Coffee - Recreational Drug Use Recreational Drug Use: No ED ROS GENERAL - Review of Systems Review Of Systems: ROS reveals no pertinent complaints other than HPI. ED EXAM, ANIMAL BITE - Physical Exam Exam: See Below Exam Limited By: No Limitations General Appearance: Alert, WD/WN, No Apparent Distress Skin Exam: Other (There is a place on the medial last back of the anterior right thigh it's an area about 2 cm in diameter bright red and it in the center is a little area about a centimeter around it which looks kind of purplish. I don't see any obvious cellulitis around the area and there is no rash anywhere else) Course - Vital Signs Last Recorded V/S: Last Vital Signs Temp 36.2 C 12/19/18 09:13 Pulse 74 12/19/18 09:13 Resp 18 12/19/18 09:13 BP 145/73 H 12/19/18 09:13 Pulse Ox 95 12/19/18 09:13 Departure - Departure Time of Disposition: 10:37 Disposition: Home, Self-Care 01 Condition: Fair Clinical Impression: Tick bite - Discharge Information Referrals: Edmar Warren MD [Primary Care Provider] - Additional Instructions: This looks like you have an infected tick bite but the chills and sweats you had a few days ago or a little bit concerning. Therefore I'm going to put you on doxycycline twice daily for 10 days. That's about the minimum that you would use for Lyme disease. You don't need any kind of testing for Lyme disease. If you're not getting better over the next 2 or 3 days and be sure to see your Dr. or return to the ER
== END 2018-12-19 10:45 | disposition home or self-care (01) ==
LOC: JP.ED 08:54
DX: S70.361A Insect bite (nonvenomous), right thigh, initial encounter (principal); I10 Essential (primary) hypertension; K21.9 Gastro-esophageal reflux disease without esophagitis; E11.9 Type 2 diabetes mellitus without complications; E66.9 Obesity, unspecified; J44.9 Chronic obstructive pulmonary disease, unspecified; F17.210 Nicotine dependence, cigarettes, uncomplicated; Z79.899 Other long term (current) drug therapy; Z98.890 Other specified postprocedural states; Z79.82 Long term (current) use of aspirin; Z79.84 Long term (current) use of oral hypoglycemic drugs; W57.XXXA Bitten or stung by nonvenomous insect and other nonvenomous arthropods, initial encounter
CPT/HCPCS: 99282

== ENCOUNTER 2023-08-17 20:44 | Inpatient (IN) | payer BC, MEDICAID, MEDICARE ==
[2023-08-17] MEDS: Ondansetron 4 MG/2 ML SDV IVPUSH ONE (21:15)
[2023-08-17] MEDS: Sodium Chloride 0.9% 1,000 ML IV SCH (21:15)
[2023-08-17 21:17] LABS: BASOPHILS ABSOLUTE AUTO 0.01 K/uL (0.00-0.10); BASOPHILS PERCENT AUTO 0.1 % (0.1-1.3); EOSINOPHILS ABSOLUTE AUTO 0.03 K/uL (0.00-0.40); EOSINOPHILS PERCENT AUTO 0.4 % (0.0-5.4); HEMATOCRIT 44.4 % (38.4-49.7); HEMOGLOBIN 15.4 g/dL (12.9-16.9); IMMATURE GRAN ABSOLUTE AUTO 0.04 K/uL (0.00-0.23); IMMATURE GRAN PERCENT AUTO 0.5 % (0.0-0.7); LYMPHOCYTES ABSOLUTE AUTO 0.32 K/uL (0.8-3.3); LYMPHOCYTES PERCENT AUTO 3.8 % (11.4-47.7); MEAN CORPUSCULAR HEMOGLOBIN 30.6 pg (31.6-35.5); MEAN CORPUSCULAR HGB CONC 34.7 g/dL (31.6-35.5); MEAN CORPUSCULAR VOLUME 88.3 fL (81.4-99.0); MONOCYTES ABSOLUTE AUTO 0.38 K/uL (0.20-0.90); MONOCYTES PERCENT AUTO 4.5 % (3.3-12.6); NEUTROPHILS PERCENT AUTO 90.7 % (40.0-78.1); PLATELET COUNT,PLT 136 K/uL (130-375); RED BLOOD CELL COUNT 5.03 M/uL (4.14-5.76); WHITE BLOOD CELL COUNT,WBC 8.4 K/uL (3.2-11.0)
[2023-08-17] MEDS: Acetaminophen 325 MG Tab PO ONE (21:37)
[2023-08-17 21:38] LABS: CORONAVIRUS COVID-19 NAA NEGATIVE (NEGATIVE); INFLUENZA A NAA NEGATIVE (NEGATIVE); INFLUENZA B NAA NEGATIVE (NEGATIVE); RESPIRATORY SYNCYTIAL VIR NAA NEGATIVE (NEGATIVE)
[2023-08-17 21:39] LABS: A/G RATIO 0.9 (1.2-2.2); ALANINE AMINOTRANSFERASE,ALT 24 U/L (12-78); ALBUMIN 2.9 g/dL (3.4-5.0); ALKALINE PHOSPHATASE 59 U/L (46-116); ASPARTATE AMNIOTRANSFERASE,AST 17 U/L (15-37); BILIRUBIN TOTAL 0.8 mg/dL (0.2-1.0); BLOOD UREA NITROGEN,BUN 20 mg/dL (7-18); CALCIUM 7.6 mg/dL (8.5-10.1); CARBON DIOXIDE,CO2 24 mmol/L (21-32); CHLORIDE,CL 99 mmol/L (100-108); ESTIMATED GFR 78 mL/min (>60); GLUCOSE RANDOM 161 mg/dL (74-106); POTASSIUM,K 4.3 mmol/L (3.6-5.2); PROTEIN TOTAL,TP 6.2 g/dL (6.4-8.2); SODIUM,NA 131 mmol/L (140-148)
[2023-08-17 21:40] LABS: ANION GAP 12.3 mmol/L (5.0-14.0)
[2023-08-17 22:47] LABS: APPEARANCE,URINE SLIGHTLY CLOUDY (CLEAR); BILIRUBIN,URINE NEGATIVE (NEGATIVE); COLOR,URINE YELLOW (YELLOW); GLUCOSE,URINE 100 mg/dL (NEGATIVE); KETONES,URINE NEGATIVE (NEGATIVE); LEUKOCYTE ESTERASE,URINE NEGATIVE (NEGATIVE); NITRITE,URINE NEGATIVE (NEGATIVE); OCCULT BLOOD,URINE TRACE-INTACT (NEGATIVE); PH,URINE 5.5 (5.0-8.0); PROTEIN,URINE TRACE mg/dL (NEGATIVE); UROBILINOGEN,URINE 0.2 EU/dL (0.2-1.0)
[2023-08-17] MEDS: Ibuprofen 600 MG Tab PO ONE (22:51)
[2023-08-17 22:53] LABS: AMORPHOUS SEDIMENT,URINE NOT SEEN; BACTERIA,URINE FEW; EPITHELIAL CELLS,URINE NOT SEEN; MUCUS,URINE NOT SEEN; RBC,URINE 0-5 (0-5); WBC,URINE 0-5 (0-5)
[2023-08-17] MEDS: Sodium Chloride 0.9% 50 ML IV STA (23:24)
[2023-08-17] MEDS: Iopamidol 612 MG/ML 100 ML Bottle IV STA (23:24)
[2023-08-18] MEDS: cefTRIAXone 1 GM in Sodium Chloride 0.9% 50 ML IV ONE (00:37)
[2023-08-18] MEDS: Sodium Chloride 0.9% 1,000 ML IV SCH ×2 (00:38→08:47)
[2023-08-18] MEDS ORDERED: Ondansetron 4 MG/2 ML SDV IV PRN (00:44)
[2023-08-18] MEDS ORDERED: traMADol 50 MG Tab PO PRN (00:57)
[2023-08-18] MEDS ORDERED: Albuterol/Ipratropium 3.0-0.5 MG/3 ML Neb Soln NEB PRN (00:57)
[2023-08-18] MEDS ORDERED: Non-Formulary Medication 1 Each (Esomeprazole [Nexium] 40 MG Cap) PO PRN (00:57)
[2023-08-18] MEDS ORDERED: Non-Formulary Medication 1 Each (Fexofenadine [Allegra] 180 MG Tablet) PO PRN (00:57)
[2023-08-18] MEDS ORDERED: Pantoprazole 40 MG Tab.CR PO PRN (01:27)
[2023-08-18] MEDS ORDERED: Loratadine 10 MG Tab PO PRN (01:39)
[2023-08-18 04:44] LABS: HEMATOCRIT 39.8 % (38.4-49.7); HEMOGLOBIN 13.7 g/dL (12.9-16.9); MEAN CORPUSCULAR HEMOGLOBIN 30.9 pg (31.6-35.5); MEAN CORPUSCULAR HGB CONC 34.4 g/dL (31.6-35.5); MEAN CORPUSCULAR VOLUME 89.8 fL (81.4-99.0); RED BLOOD CELL COUNT 4.43 M/uL (4.14-5.76); WHITE BLOOD CELL COUNT,WBC 6.4 K/uL (3.2-11.0)
[2023-08-18] MEDS ORDERED: Ibuprofen 400 MG Tab PO PRN (05:00)
[2023-08-18] MEDS: Acetaminophen 325 MG Tab PO PRN (06:07)
[2023-08-18] MEDS: Lisinopril 10 MG Tab PO SCH (08:46)
[2023-08-18] MEDS: amLODIPine 5 MG Tab PO SCH (08:46)
[2023-08-18] MEDS: Montelukast 10 MG Tab PO SCH (08:46)
[2023-08-18] MEDS: metFORMIN 500 MG Tab PO SCH (08:46)
[2023-08-18] MEDS: atorvaSTATin 20 MG Tab PO SCH (08:46)
[2023-08-18] MEDS: Aspirin 81 MG Tab.EC PO SCH (08:46)
[2023-08-18 11:29] VITALS: BP 135/46; PULSE 79
[2023-08-19] MEDS ORDERED: cefTRIAXone 1 GM in Sodium Chloride 0.9% 50 ML IV SCH (00:30)
[2023-08-19] MEDS ORDERED: cefTRIAXone 1 GM Vial IM SCH (01:00)
== END 2023-08-18 14:31 | disposition home or self-care (01) | DRG 392 ==
LOC: JP.ED 20:44 → JP.MS 08-18 00:45
PROVIDERS: ADMIT Family Medicine; ATTEND Hospitalist
DX: A08.4 Viral intestinal infection, unspecified (principal); R50.9 Fever, unspecified; E86.0 Dehydration; R79.82 Elevated C-reactive protein (CRP); E78.00 Pure hypercholesterolemia, unspecified; J44.9 Chronic obstructive pulmonary disease, unspecified; E66.9 Obesity, unspecified; E11.9 Type 2 diabetes mellitus without complications; Z79.82 Long term (current) use of aspirin; Z79.84 Long term (current) use of oral hypoglycemic drugs; I10 Essential (primary) hypertension; Z68.38 Body mass index [BMI] 38.0-38.9, adult; Z96.642 Presence of left artificial hip joint; R73.03 Prediabetes; F17.200 Nicotine dependence, unspecified, uncomplicated; Z79.899 Other long term (current) drug therapy; Z79.52 Long term (current) use of systemic steroids
CPT/HCPCS: 0241U; 36415; 71045; 74177; 80053; 81001; 83605; 83690; 84145; 85025; 85027; 86140; 87040; 99239; 96361; 96374; 96375; 99284; 99285-25; A9270-GY; J0696; J2405; J3490; J7030; Q9967

== ENCOUNTER 2024-07-04 06:41 | Day surgery (SDC) | payer MEDICARE ==
[2024-07-04] MEDS ORDERED: Propofol 200 MG/20 ML SDV ONE ×2 (07:14→08:26)
[2024-07-04] MEDS ORDERED: fentaNYL 100 MCG/2 ML SDV ONE (07:14)
[2024-07-04] MEDS: Lactated Ringers 1,000 ML IV SCH (07:23)
[2024-07-04 09:41] VITALS: BP 106/87; PULSE 65
== END 2024-07-04 09:55 | disposition home or self-care (01) ==
LOC: JP.SDS 06:41
PROVIDERS: ATTEND Surgery
DX: Z12.11 Encounter for screening for malignant neoplasm of colon (principal); K63.5 Polyp of colon; I10 Essential (primary) hypertension; E66.9 Obesity, unspecified; E11.9 Type 2 diabetes mellitus without complications
CPT/HCPCS: 00811; 45385; 88305; J2704; J3010; J7120